=== PATIENT | male | born 1985 | race Caucasian/White ===

== ENCOUNTER 2017-04-26 18:00 | Emergency (ER) | payer BC ==
[2017-04-26 18:51] VITALS: BP 129/76
[2017-04-26] MEDS ORDERED: Cyclopentolate 1% OPTH.SOL* 2 ML BTL RIGHT EYE ONE (19:31)
--- NOTE | 2017-04-26 19:35 | ED ---
Throat Pain/Nasal Congestion - HPI Summary HPI Summary: 31M presents with foreign body sensation in left eye. He states something struck the eye either a nail or piece of plastic but it not there anymore. He admits to blurry vision and tearing of his eye. His pain is intense and the lights are bothering him. His tetanus is up to date. He has not taken anything for pain. He does not wear contacts or glasses. - History of Current Complaint Chief Complaint: EDEyeProblem Time Seen by Provider: 04/26/17 18:50 - Allergies/Home Medications Allergies/Adverse Reactions: Allergies Allergy/AdvReac Type Severity Reaction Status Date / Time Penicillins [PCN] Allergy Unknown Verified 01/18/15 18:29 Reaction Details PMH/Surg Hx/FS Hx/Imm Hx Endocrine/Hematology History: Denies: Hx Anticoagulant Therapy Respiratory History: Denies: Hx Asthma Sensory History: Denies: Hx Contacts or Glasses Opthamlomology History: Denies: Hx Contacts or Glasses Infectious Disease History: No Infectious Disease History: Denies: Traveled Outside the [place] in Last 30 Days - Family History Known Family History: Positive: Hypertension - Social History Alcohol Use: None Substance Use Type: Reports: None Smoking Status (MU): Former Smoker Review of Systems Negative: Fever Positive: Photophobia, Blurred Vision, Erythema Negative: Chest Pain Negative: Shortness Of Breath All Other Systems Reviewed And Are Negative: Yes Physical Exam Triage Information Reviewed: Yes Vital Signs On Initial Exam: Initial Vitals Temp Pulse Resp BP Pulse Ox 98.6 F 72 20 130/69 99 04/26/17 18:02 04/26/17 18:02 04/26/17 18:02 04/26/17 18:02 04/26/17 18:02 Vital Signs Reviewed: Yes Appearance: Positive: Pain Distress Skin: Positive: Warm, Skin Color Reflects Adequate Perfusion Head/Face: Positive: Normal Head/Face Inspection Eyes: Positive: EOMI, LEXIE, Conjunctiva Inflammed, Discharge - tears ENT: Positive: Normal ENT inspection, Pharynx normal, TMs normal Respiratory/Lung Sounds: Positive: Clear to Auscultation, Breath Sounds Present Cardiovascular: Positive: Normal, RRR Procedures - Eye Procedure Alcaine Drops Administered: Yes - fluorscein exam 2mm at 12 Diagnostics - Vital Signs Vital Signs Temp Pulse Resp BP Pulse Ox 04/26/17 18:46 98.4 F 69 18 129/76 99 04/26/17 18:02 98.6 F 72 20 130/69 99 - Laboratory Lab Statement: Any lab studies that have been ordered have been reviewed, and results considered in the medical decision making process. EENT Course/Dx - Course Course Of Treatment: 31M presents with foreign body sensation in left eye. He states something struck the eye either a nail or piece of plastic but it not there anymore. He admits to blurry vision and tearing of his eye. His pain is intense and the lights are bothering him. His tetanus is up to date. He has not taken anything for pain. He does not wear contacts or glasses. fluoroscein exam shows 2mm at 12 corneal abrasion no foreign body, will treat with pain medicaiton and polytrim. gave cyclogyl as is going on boat tomorrow and is very sensitive to light. - Differential Diagnoses Differential Diagnoses: Conjunctivitis, Corneal Abrasion, Foreign Body - Diagnoses Provider Diagnoses: Corneal abrasion, left Discharge - Discharge Plan Condition: Good Disposition: HOME Prescriptions: oxyCODONE/Acetamin 5/325 MG* [Percocet 5/325 TAB*] 1 tab PO Q6H PRN #16 tab MDD 4 PRN Reason: Pain Patient Education Materials: Corneal Abrasion (ED) Referrals: Jessika GALEAS,Aron Foster [Primary Care Provider] - Adrian Briceño MD [Medical Doctor] - Additional Instructions: Place 1 drop in eye 4 times a day for 5 days of polytrim Can use cyclogyl for eye spasms tomorrow 1 drop up to three times a day Use artificial tears or saline to rinse eye for symptomatic relief Take Tylenol or ibuprofen for pain, use narcotic for break through pain Follow up with ophthalmology Return to ED if develop any new or worsening symptoms
[2017-04-26] MEDS ORDERED: Polymyx/Trimethoprim OPTH* 10 ML BTL ONE (19:43)
[2017-04-26] MEDS: Polymyx/Trimethoprim OPTH* 10 ML BTL RIGHT EYE SCH ×2 (19:46→19:47)
== END 2017-04-26 20:13 | disposition home or self-care (01) ==
LOC: ED 18:00
DX: S05.02XA Injury of conjunctiva and corneal abrasion without foreign body, left eye, initial encounter (principal); L53.9 Erythematous condition, unspecified; H53.149 Visual discomfort, unspecified; H53.8 Other visual disturbances; Z87.891 Personal history of nicotine dependence; X58.XXXA Exposure to other specified factors, initial encounter; Y93.9 Activity, unspecified; Y92.9 Unspecified place or not applicable
CPT/HCPCS: 99281; A9270-GY